=== PATIENT | male | born 1985 | race African-American/Black ===

== ENCOUNTER 2016-06-05 23:06 | Emergency (ER) | payer OTHER ==
--- NOTE | ~2016-06-05 | CR72 ---
[facility] A Service of [facility] & [facility] RADIOLOGY TEXT RESULTS PATIENT: YONY ORTEGA LOCATION: [facility] : 89 UNIT #: [id number] AGE: [address]: Acosta Davidson MD SEX: M ORDER DR: [id number] [facility] [address] [place], [place] [address] [id number] E MR#: [id number] Acc #: [id number] NAME: YONY ORTEGA. : 1985 SEX: M STUDY DATE/TIME: 06/05/2016 22:53 UNIT: [facility] ROOM: STUDY DESCRIPTION: CR Chest Single View Portable Attending Physician: Acosta Davidson M.D. Ordering Physician: Ed Doctor [id number] [facility] Primary Care Physician: Primary Care Physician No MEDICAL IMAGING REPORT This report is preliminary unless electronic signature is present EXAM AP portable chest 06/05/2016 HISTORY 31-year-old male in the ED after syncopal episode today. He notes a 1-day history of cough and ill feeling. TECHNIQUE AP portable chest x-ray. FINDINGS The examination is negative. The lungs are expanded and clear. No visible pulmonary infiltrate or pleural effusion. Heart size and pulmonary vascularity are normal. IMPRESSION Negative chest. Dictated by... Tramaine Diego M.D. THIS IS AN ELECTRONICALLY VERIFIED REPORT Tramaine Diego M.D. at 06/07/2016 9:53 PM LEODAN/gela TD: 06/07/2016 07:27 JOB #: [id number] MEDICAL IMAGING REPORT COPY
--- NOTE | ~2016-06-05 | EKG ---
PATIENT: YONY ORTEGA UNIT #: [id number] Ventricular Rate: 96 BPM Atrial Rate: 96 BPM P-R Interval: 150 ms QRS Duration: 86 ms Q-T Interval: 348 ms QTC Calculation(Bezet): 439 ms P [place]: 55 degrees Calculated R [place]: -43 degrees Calculated T [place]: 46 degrees Diagnosis Line: Normal sinus rhythm Diagnosis Line: Incomplete right bundle branch block Diagnosis Line: Possible Left atrial enlargement Diagnosis Line: Left axis deviation Diagnosis Line: Abnormal ECG Diagnosis Line: No previous ECGs available Diagnosis Line: Confirmed by JALEN CRUZ MD ([id number]) on Diagnosis Line: 06/06/2016 8:02:23 PM INTERPRETING MD: KEVIN
[~2016-06-05 23:06] MED LIST: ORUDIS75 M1 PO; PHENERGAN PO; VICODIN 5/500 T1 TAB PO
[2016-06-05 23:19] LABS: BASOPHIL% 0.4 % (0-2.5); EOSINOPHIL% 0.3 % (0.0-7.0); HEMATOCRIT 44.7 % (38.0-50.0); HEMOGLOBIN 14.8 gm/dL (13.0-16.0); LYMPHOCYTE# 0.3 X10e3 (1.0-3.5); LYMPHOCYTE% 3.2 % (17.0-45.0); MEAN CELL VOLUME 94.9 FL (83-96); MEAN CORPUSCULAR HEMOGLOBIN 31.4 PG (28-34); MEAN CORPUSCULAR HGB CONC 33.1 g/dL (30-36); MEAN PLATELET VOLUME 8.8 FL (6.5-11.5); MONOCYTE# 1.1 X10e3 (0-1.0); MONOCYTE% 11.5 % (3.0-12.0); NEUTROPHIL# 7.8 X10e3 (1.5-7.1); NEUTROPHIL% 84.6 % (40-75); PLATELET COUNT 155 X10e3 (140-420); RED BLOOD COUNT 4.71 X10e (3.90-5.60); RED CELL DISTRIBUTION WIDTH 13.6 % (11.0-15.5); WHITE BLOOD COUNT 9.2 X10e3 (4.0-10.5)
[2016-06-05 23:20] LABS: DIFF IND NO
[2016-06-05 23:46] LABS: ALBUMIN SERUM 3.9 g/dL (3.5-5.0); ALKALINE PHOSPHATASE 36 U/L (32-92); ALT (SGPT) 32 U/L (10-40); AST (SGOT) 38 U/L (10-42); BILIRUBIN, DIRECT 0.2 mg/dL (0.0-0.2); BILIRUBIN,INDIRECT 0.9 mg/dL (0.0-0.9); BILIRUBIN,TOTAL 1.1 mg/dL (0.2-2.0); BLOOD UREA NITROGEN 8 mg/dL (9-23); BUN/CREATININE RATIO 7.27; CALCIUM SERUM 8.6 mg/dL (8.4-10.2); CARBON DIOXIDE 25 mmol/L (22-31); CHLORIDE 104 mmol/L (100-111); CREATININE SERUM 1.1 mg/dL (0.6-1.4); GLOM FILT RATE Estimated ABOVE60 mL/min (>60); GLUCOSE FASTING 116 mg/dL (70-110); POTASSIUM 3.2 mmol/L (3.5-5.1); PROTEIN TOTAL SERUM 7.4 g/dL (6.0-8.3); SODIUM 137 mmol/L (135-145)
[2016-06-06 00:21] LABS: INFLUENZA A POS (NEG); INFLUENZA B NEG (NEG)
== END 2016-06-06 01:30 | disposition home or self-care (01) ==
LOC: CED 23:06
PROVIDERS: Emergency Medicine
DX: R55 Syncope and collapse (principal); J10.1 Influenza due to other identified influenza virus with other respiratory manifestations; J45.909 Unspecified asthma, uncomplicated; Z91.013 Allergy to seafood
CPT/HCPCS: 36415; 71010; 80048; 80076; 82947; 85025; 87804; 87880; 93005; 96360; 99284